=== PATIENT | male | born 1970 | race Caucasian/White ===

== ENCOUNTER 2021-06-07 13:23 | Emergency (ER) | payer OTHER ==
[~2021-06-07] VITALS: Ht 175.3 cm; Wt 80.7 kg
[2021-06-07] MEDS ORDERED: NEURONTIN600 M1 PO (13:46)
[2021-06-07] MEDS ORDERED: PAXIL20 MG PO (13:46)
[2021-06-07] MEDS ORDERED: METFORMIN HCL500 M2 PO (13:47)
[2021-06-07] MEDS ORDERED: INTESTINEX680 M1 PO (15:14)
[2021-06-07] MEDS ORDERED: AMOX-CLAV 875-1 EAC1 PO (15:14)
[2021-06-07] MEDS ORDERED: KETO10TA2 PO (15:14)
== END 2021-06-07 15:42 | disposition home or self-care (01) ==
LOC: ER 13:23
DX: S60.111A Contusion of right thumb with damage to nail, initial encounter (principal); L03.011 Cellulitis of right finger; B96.29 Other Escherichia coli [E. coli] as the cause of diseases classified elsewhere; B96.5 Pseudomonas (aeruginosa) (mallei) (pseudomallei) as the cause of diseases classified elsewhere; B96.89 Other specified bacterial agents as the cause of diseases classified elsewhere; Y93.89 Activity, other specified; W22.8XXA Striking against or struck by other objects, initial encounter; Y92.89 Other specified places as the place of occurrence of the external cause; Y99.8 Other external cause status

== ENCOUNTER → 2021-09-30 | Outpatient (CLI) | payer OTHER ==
[~2021-09-30] MED LIST: AMOX-CLAV 875-1 EAC1 PO; INTESTINEX680 M1 PO; KETO10TA2 PO; METFORMIN HCL500 M2 PO; NEURONTIN600 M1 PO; PAXIL20 MG PO
== END | disposition home or self-care (01) ==
LOC: SONOGRAMA 13:27
DX: R31.29 Other microscopic hematuria (principal)